=== PATIENT | male | born 1945 | race Caucasian/White ===

== ENCOUNTER 2016-05-12 00:55 | Emergency (ER) | payer MEDICARE ==
[~2016-05-12] VITALS: Ht 185.4 cm; Wt 95.5 kg
[~2016-05-12 00:55] MED LIST: AMOXICILLIN 50500 MG PO; ASPIRIN 32325 MG/TAB PO; ASPIRIN 81M81 MG/TA2 PO; FLOMAX 0.40.4 MG/CAP PO; LEVAQUIN 5500 MG/TA1 PO; NO HOME MEDICATIONS; NORCO 325 MG-51 TAB PO; PROSCAR 5MG5 MG PO
[2016-05-12 00:58] VITALS: TEMP 97.6
[2016-05-12] MEDS ORDERED: MICROZIDE12.5 MG PO (01:04)
[2016-05-12 02:35] LABS: PH 6 (5-8); SQUAMOUS EPITHELIAL 0-2 /hpf; URINE APPEARANCE Clear; URINE BACTERIA None Seen /hpf; URINE BILIRUBIN Negative (NEGATIVE); URINE BLOOD Negative (NEGATIVE); URINE COLOR Yellow; URINE GLUCOSE Negative (NEGATIVE); URINE KETONE Negative (NEGATIVE); URINE RBC 0-2 /hpf; URINE UROBILINOGEN Negative (NEGATIVE)
[2016-05-12 03:01] VITALS: BP 165/80; PULSE 96
== END 2016-05-12 03:00 | disposition home or self-care (01) ==
LOC: COL.ER 00:55
PROVIDERS: Nurse Practitioner
DX: N40.1 Benign prostatic hyperplasia with lower urinary tract symptoms (principal); R33.8 Other retention of urine; I10 Essential (primary) hypertension; F17.210 Nicotine dependence, cigarettes, uncomplicated

== ENCOUNTER 2016-05-28 17:24 | Emergency (ER) | payer MEDICARE ==
[~2016-05-28] VITALS: Ht 185.4 cm; Wt 91.8 kg
[~2016-05-28 17:24] MED LIST changes: +MICROZIDE12.5 MG PO
[2016-05-28 17:32] VITALS: TEMP 97.6
[2016-05-28] MEDS ORDERED: HCTZ12.5TAB PO (17:35)
[2016-05-28] MEDS ORDERED: PROSCAR 5MG5 MG PO (17:36)
[2016-05-28 18:45] LABS: PH 8 (5-8); SQUAMOUS EPITHELIAL None Seen /hpf; URINE APPEARANCE Cloudy; URINE BACTERIA Rare /hpf; URINE BILIRUBIN Negative (NEGATIVE); URINE BLOOD 2+ (NEGATIVE); URINE COLOR Yellow; URINE GLUCOSE Negative (NEGATIVE); URINE KETONE Negative (NEGATIVE); URINE RBC >50 /hpf; URINE UROBILINOGEN Negative (NEGATIVE); URINE WBC >50 /hpf
[2016-05-28] MEDS ORDERED: CEFTIN500 MG PO (18:49)
[2016-05-28 19:08] VITALS: BP 131/79; PULSE 97
== END 2016-05-28 19:09 | disposition home or self-care (01) ==
LOC: COL.ER 17:24
PROVIDERS: Emergency Medicine
DX: T83.098A Other mechanical complication of other urinary catheter, initial encounter (principal); N39.0 Urinary tract infection, site not specified; B95.7 Other staphylococcus as the cause of diseases classified elsewhere; N40.1 Benign prostatic hyperplasia with lower urinary tract symptoms; R33.8 Other retention of urine

== ENCOUNTER 2016-06-09 01:42 | Emergency (ER) | payer MEDICARE ==
[~2016-06-09] VITALS: Ht 185.4 cm; Wt 86.4 kg
[~2016-06-09 01:42] MED LIST changes: +CEFTIN500 MG PO; +HCTZ12.5TAB PO
[2016-06-09 01:47] VITALS: TEMP 98.5
[2016-06-09 02:57] LABS: PH 7 (5-8); SQUAMOUS EPITHELIAL None Seen /hpf; URINE APPEARANCE Cloudy; URINE BACTERIA Rare /hpf; URINE BILIRUBIN Negative (NEGATIVE); URINE BLOOD 1+ (NEGATIVE); URINE COLOR Yellow; URINE GLUCOSE Negative (NEGATIVE); URINE KETONE Negative (NEGATIVE); URINE RBC >50 /hpf; URINE UROBILINOGEN Negative (NEGATIVE); URINE WBC >50 /hpf
[2016-06-09] MEDS ORDERED: BACTRIM DS 8001 TAB PO (03:08)
[2016-06-09 03:39] VITALS: BP 168/90; PULSE 108
== END 2016-06-09 03:43 | disposition home or self-care (01) ==
LOC: COL.ER 01:42
PROVIDERS: Emergency Medicine
DX: N39.0 Urinary tract infection, site not specified (principal); R33.9 Retention of urine, unspecified
CPT/HCPCS: J0696

== ENCOUNTER 2016-08-08 00:43 | Emergency (ER) | payer MEDICARE ==
[~2016-08-08] VITALS: Ht 188 cm; Wt 88.6 kg
[~2016-08-08 00:43] MED LIST changes: +BACTRIM DS 8001 TAB PO
[2016-08-08 00:44] VITALS: TEMP 97.4
[2016-08-08 01:50] LABS: PH 6 (5-8); SQUAMOUS EPITHELIAL None Seen /hpf; URINE APPEARANCE Clear; URINE BACTERIA None Seen /hpf; URINE BILIRUBIN Negative (NEGATIVE); URINE BLOOD 2+ (NEGATIVE); URINE COLOR Yellow; URINE GLUCOSE Negative (NEGATIVE); URINE KETONE Negative (NEGATIVE); URINE UROBILINOGEN Negative (NEGATIVE)
[2016-08-08 01:52] LABS: URINE RBC 20-50 /hpf; URINE WBC 0-2 /hpf
[2016-08-08 02:19] VITALS: BP 148/71; PULSE 94
== END 2016-08-08 02:19 | disposition home or self-care (01) ==
LOC: COL.ER 00:43
PROVIDERS: Nurse Practitioner
DX: R33.9 Retention of urine, unspecified (principal); C61 Malignant neoplasm of prostate; I10 Essential (primary) hypertension; F17.210 Nicotine dependence, cigarettes, uncomplicated

== ENCOUNTER → 2016-08-14 | Outpatient (CLI) | payer MEDICARE | LOC: COL.RAD 09:22 | DX: C61 Malignant neoplasm of prostate (principal) | CPT/HCPCS: A9503 ==

== ENCOUNTER → 2016-08-30 | Outpatient (CLI) | payer MEDICARE ==
[2016-08-30 17:09] LABS: CALCIUM 8.7 mg/dL (8.4-10.2); CREATININE, serum 0.89 mg/dL (0.66-1.25); POTASSIUM 3.3 mmol/L (3.4-5.0)
== END ==
LOC: COL.LAB 16:36
PROVIDERS: Internal Medicine
DX: R80.9 Proteinuria, unspecified (principal)

== ENCOUNTER 2019-01-16 17:04 | Emergency (ER) | payer MEDICARE, MEDICAID ==
[~2019-01-16] VITALS: Ht 185.4 cm; Wt 95.5 kg
[~2019-01-16 17:04] MED LIST changes: +ZESTRIL 10MG10 MG PO
[2019-01-16 17:09] VITALS: TEMP 98.7
[2019-01-16] MEDS ORDERED: NICODERM C21 MG/PATC TD (17:17)
[2019-01-16] MEDS ORDERED: LIPITOR 40MG TA40 MG PO (17:17)
[2019-01-16 17:50] LABS: BASO % 0.4 % (0.0-2.0); EOS # 0.2 (0.0-0.7); EOS % 2.3 % (0-4.0); GRAN # 8.2 (1.4-6.5); GRAN % 80.4 % (42.2-75.2); HEMOGLOBIN 14.9 g/dl (13.5-18.0); LYMPH # 0.9 (1.2-3.4); LYMPH % 8.7 % (20.0-51.0); MEAN CELL VOLUME 92 fl (80.0-100.0); MEAN CORPUSCULAR HEMOGLOBIN 31 pg (27.0-31.0); MEAN CORPUSCULAR HGB CONC 34 g/dl (33.0-37.0); MEAN PLATELET VOLUME 10.6 fl (7.4-10.4); MONO # 0.8 (0.1-0.6); MONO % 7.9 % (1.7-9.3); PLATELET COUNT 210 K/mm3 (130-400); RED BLOOD COUNT 4.77 M/mm3 (4.20-5.60); REDCELL DISTRIBUTION WIDTH-CV 13.7 % (11.5-14.5)
[2019-01-16 17:54] LABS: INR 1.5 (0.8-3.0); PROTHROMBIN TIME 17.6 SECONDS (9.7-12.8)
[2019-01-16 17:57] LABS: PARTIAL THROMBOPLASTIN TIME 30.9 SECONDS (26.0-37.0)
[2019-01-16 18:04] LABS: BILIRUBIN,TOTAL 0.7 mg/dL (0.0-1.0); C-REACTIVE PROTEIN 8.9 mg/dL (0.0-0.9); CALCIUM 8.8 mg/dL (8.4-10.2); CREATININE, serum 0.81 (0.66-1.25); POTASSIUM 3.9 mmol/L (3.4-5.0); TOTAL PROTEIN 7.2 gm/dL (6.4-8.2)
[2019-01-16] MEDS ORDERED: ZOFRAN ODT4 MG PO (19:39)
[2019-01-16 20:10] VITALS: BP 140/90; PULSE 98
== END 2019-01-16 20:10 | disposition home or self-care (01) ==
LOC: COL.ER 17:04
PROVIDERS: Physician Assistant
DX: K85.90 Acute pancreatitis without necrosis or infection, unspecified (principal); I10 Essential (primary) hypertension
CPT/HCPCS: J7030; Q9967